=== PATIENT | female | born 2000 | race Caucasian/White ===

== ENCOUNTER 2021-03-28 21:44 | Emergency (ER) | payer OTHER | END 2021-03-28 22:09 | disposition left against medical advice (07) | LOC: ER 21:44 | DX: R10.9 Unspecified abdominal pain (principal); Z53.21 Procedure and treatment not carried out due to patient leaving prior to being seen by health care provider ==

== ENCOUNTER 2021-10-08 18:28 | Emergency (ER) | payer OTHER ==
[~2021-10-08] VITALS: Ht 157.5 cm; Wt 95.0 kg
--- NOTE | 2021-10-08 18:50 | PHYS DOC ---
Past History Past Medical History: No Pertinent History Past Surgical History: No Surgical History Alcohol Use: None Drug Use: None Adult General HPI HPI Patient is a 20-year-old female who presents with sore throat and fever for the last day or 2. States she did not talk to her doctor. Did not take any medications other than some Tylenol early this morning. Denies any recent travel, traumas, rash, trouble swallowing or eating/drinking, chest pain, shortness of breath, cough, wheeze, abdominal pain, nausea, vomiting, diarrhea. Review of Systems Review of Systems Review of systems otherwise unremarkable except noted in HPI Allergies Allergies Allergies Coded Allergies Type Severity Reaction Last Updated Verified No Known Drug Allergies 07/11/15 No Physical Exam Physical Exam Constitutional: Well developed, well nourished, no acute distress, non-toxic appearance. [] HENT: Normocephalic, atraumatic, bilateral external ears normal, oropharynx m oist, left-sided posterior oropharyngeal erythema with oral exudates, nose normal. [] Eyes: conjunctiva normal, no discharge. [] Neck: Normal range of motion, no tenderness, supple, no stridor. [] Cardiovascular:Heart rate regular rhythm, no murmur [] Lungs & Thorax: No respiratory distress Abdomen: No abdominal pain Skin: Warm, dry, no erythema, no rash. [] Neurologic: Alert and oriented X 3, no focal deficits noted. [] Psychologic: Affect normal, judgement normal, mood normal. [] EKG EKG [] Radiology/Procedures Radiology/Procedures [] Heart Score C/O Chest Pain: No Risk Factors: Risk Factors: DM, Current or recent (<one month) smoker, HTN, HLP, family history of CAD, obesity. Risk Scores: Risk Factors: DM, Current or recent (<one month) smoker, HTN, HLP, family history of CAD, obesity. Course & Med Decision Making Course & Med Decision Making Patient is a 20-year-old female who presents with sore throat and fever Vital signs notable for fever and tachycardia. Physical exam noted above. Given medicines for symptom control. Advised to continue the amoxicillin her primary care physician gave her yesterday. Patient states she has had strep throat a dozen times in her life and is due to have her tonsils taken out. Advised that antibiotics can sometimes take 48 to 72 hours to really start working and she just took her third dose. Discussed all findings with patient. Discussed symptom management at home. Advised to follow-up with primary care physician. States she is had Covid twice and had a vaccine and does not want to be Covid tested. Gave COVID education and quarantine instructions. Gave return precautions to the ED. [] Dragon Disclaimer Dragon Disclaimer This electronic medical record was generated, in whole or in part, using a voice recognition dictation system. Departure Departure: Impression: Primary Impression: Pharyngitis Disposition: HOME / SELF CARE / HOMELESS Condition: STABLE Referrals: ROSA CARRILLO MD (PCP) Patient Instructions: Viral and Bacterial Pharyngitis Additional Instructions: Thank you for coming into the emergency department tonight and allowing us to take care of you. Please read all the attached information carefully to go over things we discussed. Please continue use Tylenol, ibuprofen and Benadryl as we discussed. Please take your nausea medicine every 6 hours at home to allow intake of Gatorade as we discussed. Please update your primary care physician in the morning to update on your ED visit. It is a good idea to stay away from work or school until your fever has resolved without Tylenol or ibuprofen. Please come back to the emergency department with new or concerning symptoms as we discussed, or your symptoms have not began to get better after 48 hours. COLTEN ESTEBAN MD Oct 08, 2021 18:50
[2021-10-08] MEDS ORDERED: ONDANSETRON 4MG ODT 4TABLET STARTPACK. PO ONE (19:15)
[2021-10-08] MEDS ORDERED: ONDANSETRON ODT 4 MG TAB.RAPDIS PO ONE (19:15)
[2021-10-08] MEDS ORDERED: KETOROLAC 30 MG/ML VIAL. IM ONE (19:15)
[2021-10-08] MEDS ORDERED: DEXAMETHASONE SOD PHOS 10 MG/ML VIAL. IM ONE (19:15)
[2021-10-08] MEDS ORDERED: ACETAMINOPHEN 500 MG TABLET PO ONE (19:30)
[2021-10-08] MEDS ORDERED: ACETAMINOPHEN 650 MG SUPP.RECT. PR ONE (19:30)
[2021-10-08] MEDS ORDERED: ACETAMINOPHEN 650 MG/20.3 ML SOLUTION. PO ONE (19:30)
[2021-10-08 19:59] VITALS: BP 130/65
== END 2021-10-08 19:59 | disposition home or self-care (01) ==
LOC: ER 18:28
DX: J02.9 Acute pharyngitis, unspecified (principal)
CPT/HCPCS: 96372; 99284; J1100; J1885; Q0162